=== PATIENT | female | born 1995 | race Two or more races ===

== ENCOUNTER 2017-10-21 17:17 | Emergency (ER) | payer MEDICAID ==
[~2017-10-21] VITALS: Ht 170.2 cm; Wt 54.4 kg
--- NOTE | 2017-10-21 18:09 | NUR ---
SOB X 2 DAYS, WITH NUASEA, VOMITING & DIARRHEA X 2 DAYS. NAD NOTED. PT AAO X4, AMB WITH STEADY GAIT. RR EVEN AND UNLABORED. MD AT BEDSIDE FOR EVAL.
--- NOTE | 2017-10-21 20:34 | NUR ---
PT AMBULATED TO BED #12. URINE SAMPLE OBTAINED.
--- NOTE | 2017-10-21 21:55 | NUR ---
Patient discharged to home in stable condition. Written and verbal after care instructions given. Patient verbalizes understanding of instruction.
[2017-10-21 21:56] VITALS: BP 115/77
== END 2017-10-21 21:57 | disposition home or self-care (01) ==
LOC: ER 17:20
DX: M25.561 Pain in right knee (principal); V89.2XXA Person injured in unspecified motor-vehicle accident, traffic, initial encounter; Y93.I9 Activity, other involving external motion; Y92.89 Other specified places as the place of occurrence of the external cause; Y99.8 Other external cause status
CPT/HCPCS: 73564; 84703; 99284; A4606; Z7610